=== PATIENT | male | born 1935 | race Caucasian/White ===

== ENCOUNTER 2018-07-06 05:15 | Emergency (ER) | payer OTHER ==
[~2018-07-06] VITALS: Ht 185.4 cm; Wt 108.9 kg
[~2018-07-06 05:15] MED LIST: HYDACE5325 PO; LEVSOD100 PO; NEBI5 PO; TAMS.4ER PO; WARF10 PO
[2018-07-06 05:41] LABS: BASOPHILS ABSOLUTE AUTO 0.04 K/mm3 (0.00-0.23); BASOPHILS PERCENT AUTO 1 % (0-2); EOSINOPHILS ABSOLUTE AUTO 0.16 K/mm3 (0.00-0.68); EOSINOPHILS PERCENT AUTO 2 % (0-6); Hematocrit 48.7 % (37.0-53.0); Hemoglobin 15.3 g/dL (13.5-17.5); IMMATURE GRAN ABSOLUTE AUTO 0.04 K/mm3 (0.00-0.10); IMMATURE GRAN PERCENT AUTO 1 % (0-1); LYMPHOCYTES ABSOLUTE AUTO 1.91 K/mm3 (0.84-5.20); LYMPHOCYTES PERCENT AUTO 25 % (21-46); MONOCYTES ABSOLUTE AUTO 0.85 K/mm3 (0.16-1.47); MONOCYTES PERCENT AUTO 11 % (4-13); Mean Corpuscular HGB 28.6 pg (26.0-34.0); Mean Corpuscular HGB Conc 31.4 g/dL (31.5-36.5); Mean Corpuscular Volume 91 fL (80-100); Mean Platelet Volume 9.6 fL (9.1-12.4); NEUTROPHILS ABSOLUTE AUTO 4.74 K/mm3 (1.96-9.15); NEUTROPHILS PERCENT AUTO 61 % (41-73); Platelet Count 173 K/mm3 (150-400); RDW Coefficient Variation 13.3 % (11.7-14.2); RDW Standard Deviation 45.2 fL (35.1-46.3); Red Blood Cell Count 5.35 M/mm3 (4.30-5.90); White Blood Cell Count 7.74 K/mm3 (4.00-11.30)
[2018-07-06 05:52] LABS: Alanine Aminotransfer (ALT/SGP 25 U/L (12-78); Albumin, Blood 3.4 g/dL (3.4-5.0); Albumin/Globulin Ratio 0.7 (0.8-1.8); Alk Phos 76 U/L (50-136); Anion Gap 5 mmol/L (6-16); Aspartate Aminotrans (AST/SGOT 19 U/L (12-37); Bilirubin, Total 0.4 mg/dL (0.1-1.0); Blood Urea Nitrogen 19 mg/dL (8-24); Bun/Creatinine Ratio 17.3 (12.0-20.0); CO2, Blood 28 mmol/L (21-32); Calcium, Blood 9.3 mg/dL (8.5-10.1); Chloride, Blood 110 mmol/L (98-108); Globulin, Blood 4.7 g/dL (2.2-4.0); Glomerular Filtration Rate >60 (60-); Glucose, Blood 95 mg/dL (70-99); Potassium, Blood 4.2 mmol/L (3.5-5.5); Sodium, Blood 143 mmol/L (136-145); Total Protein, Blood 8.1 g/dL (6.4-8.2); Troponin I <0.015 ng/mL (0.000-0.040)
[2018-07-06 06:54] LABS: International Normalized Ratio 2.85; Prothrombin Time Results 27.5 Sec (9.7-11.5)
[2018-07-06] MEDS ORDERED: Medi-Meclizine25 MG PO (09:50)
== END 2018-07-06 10:10 | disposition home or self-care (01) ==
LOC: ER 05:15
PROVIDERS: Emergency Medicine
DX: R42 Dizziness and giddiness (principal); I48.91 Unspecified atrial fibrillation; Z79.01 Long term (current) use of anticoagulants; Z79.899 Other long term (current) drug therapy
CPT/HCPCS: 70450; 80053; 84484; 85025; 85610; 93005; 93010; 99284-25

== ENCOUNTER → 2019-04-29 | Outpatient (CLI) | payer OTHER ==
[~2019-04-29] MED LIST changes: +Medi-Meclizine25 MG PO
== END | disposition home or self-care (01) ==
LOC: LAB 11:09 → LAB SHORT 11:09
DX: A49.9 Bacterial infection, unspecified (principal)
CPT/HCPCS: 87070; 87106; 87205

== ENCOUNTER 2023-04-07 17:47 | Inpatient (IN) | payer OTHER ==
[~2023-04-07] VITALS: Ht 185.4 cm; Wt 101.3 kg
[~2023-04-07 17:47] MED LIST changes: +Coumadin2 MG PO; +LEVOTHYROXINE200 MCG PO; -LEVSOD100 PO; +NEBI10 PO; -NEBI5 PO; -WARF10 PO
[2023-04-07] MEDS ORDERED: Carvedilol 3.125 MG Tab PO ONE (18:05)
[2023-04-07 18:27] LABS: BASOPHILS ABSOLUTE AUTO 0.03 K/mm3 (0.00-0.23); BASOPHILS PERCENT AUTO 0 % (0-2); EOSINOPHILS PERCENT AUTO 0 % (0-6); Hemoglobin 14.9 g/dL (13.5-17.5); IMMATURE GRAN ABSOLUTE AUTO 0.05 K/mm3 (0.00-0.10); IMMATURE GRAN PERCENT AUTO 1 % (0-1); LYMPHOCYTES ABSOLUTE AUTO 0.24 K/mm3 (0.84-5.20); LYMPHOCYTES PERCENT AUTO 2 % (21-46); MONOCYTES ABSOLUTE AUTO 0.75 K/mm3 (0.16-1.47); MONOCYTES PERCENT AUTO 7 % (4-13); Mean Corpuscular HGB 28.7 pg (26.0-34.0); Mean Corpuscular HGB Conc 32.4 g/dL (31.5-36.5); Mean Corpuscular Volume 89 fL (80-100); Mean Platelet Volume 10.2 fL (9.1-12.4); NEUTROPHILS ABSOLUTE AUTO 9.46 K/mm3 (1.96-9.15); NEUTROPHILS PERCENT AUTO 90 % (41-73); Platelet Count 187 K/mm3 (150-400); RDW Coefficient Variation 14.1 % (11.7-14.2); RDW Standard Deviation 45.4 fL (35.1-46.3); Red Blood Cell Count 5.19 M/mm3 (4.30-5.90); White Blood Cell Count 10.53 K/mm3 (4.00-11.30)
[2023-04-07 18:43] LABS: Source, Urine Clean Catch
[2023-04-07 18:45] LABS: International Normalized Ratio 1.41; Prothrombin Time Results 14.5 Sec (9.7-11.5)
[2023-04-07 18:48] LABS: Albumin, Blood 3.5 g/dL (3.4-5.0); Albumin/Globulin Ratio 0.7 (0.8-1.8); Bun/Creatinine Ratio 19.5 (12.0-20.0); Calcium, Blood 9.4 mg/dL (8.5-10.1); Creatinine, Blood 1.49 mg/dL (0.60-1.20); Globulin, Blood 4.7 g/dL (2.2-4.0); Potassium, Blood 4.5 mmol/L (3.5-5.5); Total Protein, Blood 8.2 g/dL (6.4-8.2)
[2023-04-07 18:59] LABS: Influenza A, PCR NEGATIVE (NEGATIVE); Influenza B, PCR NEGATIVE (NEGATIVE); Resp Syncytial Virus, PCR NEGATIVE (NEGATIVE)
[2023-04-07 19:10] LABS: SARS-Cov-2 (COVID-19) PCR, MMC POSITIVE (NEGATIVE)
[2023-04-07 19:27] LABS: Appearance, Urine Cloudy (Clear); Bilirubin, Urine Neg (Neg); Blood, Urine 5+ (Neg); Color, Urine Yellow (P-Yellow); Glucose Qualitative, Urine Neg (Neg); Ketones, Urine 2+ (Neg); Leukocyte Esterase, Urine 1+ (Neg); Nitrite, Urine Neg (Neg); Protein, Urine 3+ (Neg); Specific Gravity, Urine 1.015 (1.003-1.022); Urobilinogen, Urine NORM (Normal)
[2023-04-07 19:40] LABS: Bacteria Few /hpf; Hyaline Casts 0-2 /lpf (0-2); Mucus Mod (0-Heavy); Red Blood Cells, Urine 50-100 /hpf (0-2); Renal Epithelial Rare /hpf (0-Rare); Spermatozoa Few /hpf; Squamous Epithelial Cells Few /hpf (Few)
[2023-04-07 19:41] LABS: Granular Casts 0-2 /lpf (0)
[2023-04-07] MEDS ORDERED: NS 1,000 ML IV SCH (20:10)
[2023-04-07] MEDS ORDERED: Guaifenesin/Dextromethorphan Syrup 5 ML UDC PO PRN (22:20)
[2023-04-07] MEDS ORDERED: Acetaminophen 325 MG TABLET PO PRN ×2 (22:25)
[2023-04-07] MEDS ORDERED: FLU VACC QS2023-24(6MOS UP)/PF 60 MCG/0.5 ML SYRINGE IM ONE (22:25)
[2023-04-07] MEDS ORDERED: Melatonin 3 MG Tab PO PRN (22:25)
[2023-04-07] MEDS ORDERED: Albuterol HFA200 ACT/6.7 GM INH INH PRN (23:25)
[2023-04-07] MEDS ORDERED: Lactated Ringer's 1,000 ML IV SCH (23:30)
[2023-04-08] MEDS ORDERED: TAMSULOSIN HCL0.4 M1 PO (00:08)
[2023-04-08 00:14] VITALS: BP 155/90
[2023-04-08] MEDS ORDERED: Warfarin Sodium 5 MG Tab PO ONE (00:50)
[2023-04-08] MEDS ORDERED: Levothyroxine Sodium 0.025 MG Tab PO SCH (06:00)
[2023-04-08 06:16] LABS: BASOPHILS ABSOLUTE AUTO 0.01 K/mm3 (0.00-0.23); BASOPHILS PERCENT AUTO 0 % (0-2); EOSINOPHILS PERCENT AUTO 0 % (0-6); Hematocrit 41.3 % (37.0-53.0); Hemoglobin 13.4 g/dL (13.5-17.5); IMMATURE GRAN ABSOLUTE AUTO 0.05 K/mm3 (0.00-0.10); IMMATURE GRAN PERCENT AUTO 1 % (0-1); LYMPHOCYTES ABSOLUTE AUTO 1.09 K/mm3 (0.84-5.20); LYMPHOCYTES PERCENT AUTO 11 % (21-46); MONOCYTES ABSOLUTE AUTO 1.16 K/mm3 (0.16-1.47); MONOCYTES PERCENT AUTO 11 % (4-13); Mean Corpuscular HGB 28.8 pg (26.0-34.0); Mean Corpuscular HGB Conc 32.4 g/dL (31.5-36.5); Mean Corpuscular Volume 89 fL (80-100); NEUTROPHILS ABSOLUTE AUTO 8.05 K/mm3 (1.96-9.15); NEUTROPHILS PERCENT AUTO 78 % (41-73); Platelet Count 148 K/mm3 (150-400); RDW Coefficient Variation 14.5 % (11.7-14.2); RDW Standard Deviation 46.8 fL (35.1-46.3); Red Blood Cell Count 4.66 M/mm3 (4.30-5.90); White Blood Cell Count 10.36 K/mm3 (4.00-11.30)
[2023-04-08 06:25] VITALS: BP 137/98
--- NOTE | 2023-04-08 06:33 | NUR ---
PATIENT CAME IN SENIOR ACCOUNTANT CPA, TRANSFERRED TO BED COMFORTABLY. WITH PIV ON LEFT AC PATENT AND INTACT; HOOKED LR 1 L AT 125 ML/HR/ ON ROOM AIR. ON ISOLATION DUE TO COVID. WITH TELE ON AFIB 86. SKIN CHECK DONE. NEEDS ATTENDED. CALL LIGHT WITHIN PATIENT'S REACH. WILL CONTINUE TO MONITOR.
[2023-04-08 06:34] LABS: International Normalized Ratio 1.28; Prothrombin Time Results 13.3 Sec (9.7-11.5)
[2023-04-08] MEDS ORDERED: Carvedilol 6.25 MG Tab PO SCH (08:00)
[2023-04-08 08:20] LABS: Albumin/Globulin Ratio 0.7 (0.8-1.8); Bilirubin, Total 0.8 mg/dL (0.1-1.0); Bun/Creatinine Ratio 21.5 (12.0-20.0); Calcium, Blood 8.5 mg/dL (8.5-10.1); Creatinine, Blood 1.35 mg/dL (0.60-1.20); Globulin, Blood 4.1 g/dL (2.2-4.0); Potassium, Blood 3.9 mmol/L (3.5-5.5); Thyroid Stimulating Hormone 0.241 uIU/mL (0.360-4.800); Total Protein, Blood 7.1 g/dL (6.4-8.2)
[2023-04-08] MEDS ORDERED: Docusate Sodium 100 MG Cap PO SCH (09:00)
[2023-04-08] MEDS ORDERED: Heparin Sodium,Porcine 5,000 UNIT/0.5 ML SDV SC SCH (09:00)
[2023-04-08 15:46] VITALS: BP 121/74
[2023-04-08] MEDS ORDERED: Warfarin Sodium 7.5 MG Tab PO SCH (18:00)
--- NOTE | 2023-04-08 19:30 | NUR ---
SHIFT SUMMARY A&O X 4, CAN BE FORGETFUL. VSS. IS PLEASANT & COOPERATIVE WITH ALL CARE, IS [place] JOLLA. IS IN ISO FOR COVID. ON TELE, A. FIB HR 80'S. PARTICIPATED WITH PT TODAY, PT RECOMMENDED SNF. INC OF BOWEL & URINE. PT SAT UP IN FOR BFAST & LUNCH. APPETITE IS GOOD. SWALLOWS PILLS WHOLE WITH WATER. ON RA WITH SATS >95%. NO COUGH, NO SOB, NO CP. BED IN LOW POSITION, CALL LIGHT WITHIN REACH. IS ABLE TO MAKE NEEDS KNOWN. PLAN IS LIKELY SNF PLACEMENT UPON DC.
[2023-04-08 19:54] VITALS: BP 134/84
[2023-04-09 05:13] VITALS: BP 157/112
[2023-04-09 05:51] LABS: BASOPHILS ABSOLUTE AUTO 0.02 K/mm3 (0.00-0.23); BASOPHILS PERCENT AUTO 0 % (0-2); EOSINOPHILS ABSOLUTE AUTO 0.03 K/mm3 (0.00-0.68); EOSINOPHILS PERCENT AUTO 0 % (0-6); Hematocrit 41.6 % (37.0-53.0); Hemoglobin 13.3 g/dL (13.5-17.5); IMMATURE GRAN ABSOLUTE AUTO 0.02 K/mm3 (0.00-0.10); IMMATURE GRAN PERCENT AUTO 0 % (0-1); LYMPHOCYTES ABSOLUTE AUTO 1.21 K/mm3 (0.84-5.20); LYMPHOCYTES PERCENT AUTO 16 % (21-46); MONOCYTES ABSOLUTE AUTO 0.93 K/mm3 (0.16-1.47); MONOCYTES PERCENT AUTO 12 % (4-13); Mean Corpuscular HGB 28.4 pg (26.0-34.0); Mean Corpuscular Volume 89 fL (80-100); Mean Platelet Volume 9.9 fL (9.1-12.4); NEUTROPHILS ABSOLUTE AUTO 5.54 K/mm3 (1.96-9.15); NEUTROPHILS PERCENT AUTO 71 % (41-73); Platelet Count 138 K/mm3 (150-400); RDW Coefficient Variation 14.5 % (11.7-14.2); RDW Standard Deviation 46.6 fL (35.1-46.3); Red Blood Cell Count 4.69 M/mm3 (4.30-5.90); White Blood Cell Count 7.75 K/mm3 (4.00-11.30)
[2023-04-09] MEDS ORDERED: Levothyroxine Sodium 0.175 MG TAB PO SCH (06:00)
[2023-04-09 06:03] LABS: International Normalized Ratio 1.33; Prothrombin Time Results 13.7 Sec (9.7-11.5)
--- NOTE | 2023-04-09 06:07 | NUR ---
PATIENT IS ALERT AND ORIENTED, ON ROOM AIR AND TELE. WITH PIV LINE ON RIGHT ARM PATENT AND INTACT. VITAL SIGNS TAKEN AND RECORDED. NO COMPLAINTS MADE. ON ISO D/T COVID. NEEDS ATTENDED. BP TAKEN THIS MORNING IS HIGH, DUE COREG GIVEN AHEAD OF TIME. CALL LIGHT WITHIN PATIENT'S REACH. WILL CONTINUE TO MONITOR.
[2023-04-09 06:48] LABS: Albumin/Globulin Ratio 0.8 (0.8-1.8); Bilirubin, Total 0.7 mg/dL (0.1-1.0); Bun/Creatinine Ratio 25.8 (12.0-20.0); Calcium, Blood 8.9 mg/dL (8.5-10.1); Creatinine, Blood 1.24 mg/dL (0.60-1.20); Phosphorus, Blood 2.4 mg/dL (2.5-4.9); Potassium, Blood 3.8 mmol/L (3.5-5.5)
[2023-04-09 07:57] VITALS: BP 154/116
[2023-04-09] MEDS ORDERED: AmLODIPine Besylate 5 MG Tab PO SCH (09:00)
[2023-04-09 15:51] VITALS: BP 145/92
--- NOTE | 2023-04-09 17:01 | NUR ---
SHIFT SUMMARY A&O X 4. BP HIGH, 154/116, MD AWARE, ORDERS RECEIVED TO START NORVASC. NORVASC GIVEN ORDERED, AFTERNOON BP SHOWING IMPROVEMENT, 145/92. IS PLEASANT & COOPERATIVE WITH ALL CARE. IS 2 PERSON MOD/MAX ASSIST WITH FWW & GB FOR TRANSFER TO BSC/CH/BACK TO BED. USES URINAL INDEPENDENTLY AND HAD HARD MED SIZED BM ON BSC. PT IS WEAK AND STIFF. TELE SHOWS A.FIB W/BBB. ON RA WITH SATS RANGING 90-97%. NO COUGH NOTED. APPETITE GOOD. IS IN GOOD SPIRITS. PLAN FOR DC IS LIKELY SNF WHEN CLINICALLY STABLE.
[2023-04-09] MEDS ORDERED: Lactated Ringer's 1,000 ML IV SCH (17:05)
[2023-04-09] MEDS ORDERED: Warfarin Sodium 7.5 MG Tab PO SCH (18:00)
[2023-04-09 20:43] VITALS: BP 146/99
[2023-04-10] VITALS (7 sets, daily range): BP systolic 138–171; BP diastolic 87–116
[2023-04-10] MEDS ORDERED: HydrALAZINE HCl 20 MG / ML 1ML Vial IV PRN (04:24)
--- NOTE | 2023-04-10 05:15 | NUR ---
SHIFT SUMMARY: NIRAV IS A&OX4. VS WITH BP INCREASED THIS AM, ON-CALL HOSPITALIST CONTACTED AND MEDICATED PER APR WITH IMPROVEMENT UPON RECHECK. PT IS TOLERATING PO INTAKE WELL, IV TO R FOREARM PATENT, FLUIDS INFUSING. PT DEVELOPED SOME EXPIRATORY WHEEZE COUPLED WITH SOB FOR WHICH RT TREATED PT WITH REPORTED IMPROVEMENT IN SYMPTOMS, MAINTAINING SATS ORA. PT IS ABLE TO TURN AND REPOSITION HIMSELF IN BED. EDUCATED PT ON PRESSURE ULCER PREVENTION, PT VERBALIZED UNDERSTANDING. HE IS A TWO-PERSON ASSIST WITH THE FWW AND GAIT BELT TO THE BEDSIDE COMMODE. HE USES THE URINAL WITHOUT DIFFICULTY, URINATING BETWEEN 100 AND 200 ML PER VOID THIS SHIFT. HE IS LYING IN BED WITH THE CALL LIGHT IN REACH. WILL GIVE REPORT TO ONCOMING SHIFT.
[2023-04-10 05:51] LABS: BASOPHILS ABSOLUTE AUTO 0.02 K/mm3 (0.00-0.23); BASOPHILS PERCENT AUTO 0 % (0-2); EOSINOPHILS ABSOLUTE AUTO 0.04 K/mm3 (0.00-0.68); EOSINOPHILS PERCENT AUTO 1 % (0-6); Hematocrit 43.6 % (37.0-53.0); Hemoglobin 13.7 g/dL (13.5-17.5); IMMATURE GRAN ABSOLUTE AUTO 0.03 K/mm3 (0.00-0.10); IMMATURE GRAN PERCENT AUTO 1 % (0-1); LYMPHOCYTES ABSOLUTE AUTO 0.82 K/mm3 (0.84-5.20); LYMPHOCYTES PERCENT AUTO 15 % (21-46); MONOCYTES ABSOLUTE AUTO 0.74 K/mm3 (0.16-1.47); MONOCYTES PERCENT AUTO 13 % (4-13); Mean Corpuscular HGB Conc 31.4 g/dL (31.5-36.5); Mean Corpuscular Volume 89 fL (80-100); Mean Platelet Volume 10.2 fL (9.1-12.4); NEUTROPHILS ABSOLUTE AUTO 3.89 K/mm3 (1.96-9.15); NEUTROPHILS PERCENT AUTO 70 % (41-73); Platelet Count 139 K/mm3 (150-400); RDW Coefficient Variation 14.2 % (11.7-14.2); RDW Standard Deviation 46.6 fL (35.1-46.3); Red Blood Cell Count 4.89 M/mm3 (4.30-5.90); White Blood Cell Count 5.54 K/mm3 (4.00-11.30)
[2023-04-10 06:00] LABS: International Normalized Ratio 1.35; Prothrombin Time Results 13.9 Sec (9.7-11.5)
[2023-04-10 06:55] LABS: Bun/Creatinine Ratio 23.5 (12.0-20.0); Calcium, Blood 8.7 mg/dL (8.5-10.1); Creatinine, Blood 1.15 mg/dL (0.60-1.20); Potassium, Blood 3.7 mmol/L (3.5-5.5)
[2023-04-10] MEDS ORDERED: Carvedilol 6.25 MG Tab PO SCH (08:00)
--- NOTE | 2023-04-10 16:56 | NUR ---
SHIFT SUMMARY A&OX4, COOPERATIVE WITH CARE, [facility]. DENIED CP/PRESSURE, HEADACHE, DIZZINESS, OR SOB. ROOM AIR. 2P HEAVY ASSIST TO BEDSIDE COMMODE. PATIENT VERBALIZED HIS ANXIETY OF STANDING AND WALKING BECAUSE HE FEELS LIKE HE WILL FALL. DIFFICULTY MOVING LEGS WITH AMBULATION, ESPECIALLY THE RIGHT LEG. NO ACUTE CHANGES THIS SHIFT. CURRENTLY WATCHING TV IN BED. BED IN THE LOWEST POSITION. CALL LIGHT WITHIN REACH.
[2023-04-10] MEDS ORDERED: Warfarin Sodium 5 MG Tab PO SCH (18:00)
[2023-04-11] VITALS (7 sets, daily range): BP systolic 101–161; BP diastolic 7–101
[2023-04-11 06:17] LABS: BASOPHILS ABSOLUTE AUTO 0.02 K/mm3 (0.00-0.23); BASOPHILS PERCENT AUTO 0 % (0-2); EOSINOPHILS PERCENT AUTO 2 % (0-6); Hematocrit 41.8 % (37.0-53.0); Hemoglobin 13.8 g/dL (13.5-17.5); IMMATURE GRAN ABSOLUTE AUTO 0.02 K/mm3 (0.00-0.10); IMMATURE GRAN PERCENT AUTO 0 % (0-1); LYMPHOCYTES ABSOLUTE AUTO 1.28 K/mm3 (0.84-5.20); LYMPHOCYTES PERCENT AUTO 23 % (21-46); MONOCYTES ABSOLUTE AUTO 0.81 K/mm3 (0.16-1.47); MONOCYTES PERCENT AUTO 15 % (4-13); Mean Corpuscular HGB 28.6 pg (26.0-34.0); Mean Corpuscular Volume 87 fL (80-100); Mean Platelet Volume 10.2 fL (9.1-12.4); NEUTROPHILS ABSOLUTE AUTO 3.37 K/mm3 (1.96-9.15); NEUTROPHILS PERCENT AUTO 60 % (41-73); Platelet Count 142 K/mm3 (150-400); RDW Coefficient Variation 14.1 % (11.7-14.2); RDW Standard Deviation 45.3 fL (35.1-46.3); Red Blood Cell Count 4.82 M/mm3 (4.30-5.90)
[2023-04-11 06:31] LABS: International Normalized Ratio 1.58; Prothrombin Time Results 16.2 Sec (9.7-11.5)
[2023-04-11 06:42] LABS: Bun/Creatinine Ratio 23.9 (12.0-20.0); Calcium, Blood 8.5 mg/dL (8.5-10.1); Creatinine, Blood 1.13 mg/dL (0.60-1.20); Potassium, Blood 3.6 mmol/L (3.5-5.5)
--- NOTE | 2023-04-11 07:11 | NUR ---
Shift Summary Pt AOx4, requested not to be bothered t/o the night so that he could sleep. He slept well t/o the night. Hypertensive the AM with systolic of 161, gave PRN Hyralazine. During shift change pt stated he was having trouble breathing, O2 saturation is good but he is feeling short of breath. Called RT and requested a treatment.
--- NOTE | 2023-04-11 07:45 | NUR ---
TELE EVENT HR JUMPED INTO THE 150'S AND LASTED FOR ABOUT A MINUTE. PATIENT WAS TRANSFERRING FROM BED TO BSC WITH IRRIGATION EQUIPMENT REMOVER'S. BP IS ALSO ELEVATED AT 149/101. WILL ADMINISTER AM MEDS AND CONTINUE TO MONITOR.
[2023-04-11] MEDS ORDERED: AmLODIPine Besylate 5 MG Tab PO SCH (09:00)
[2023-04-11] MEDS ORDERED: Tamsulosin HCl 0.4 MG Cap PO SCH (09:00)
[2023-04-11] MEDS ORDERED: Lactated Ringer's 500 ML IV ONE (10:05)
[2023-04-11 10:23] LABS: PO2 Arterial 72.5 mmHg (80-100); pH Blood Arterial 7.46 (7.35-7.45)
--- NOTE | 2023-04-11 10:30 | NUR ---
PATIENT APPEARED "NOT HIMSELF" DURING DR'S ROUNDS. CT WAS ORDERED. PATIENT THEN WAS HYPOTENSIVE AND NOT RESPONDING TO VERBAL CUES. POWER SYSTEM ELECTRICAL ENGINEER WAS TRYING TO TRANSFER PT BACK TO BED WITH A SIT TO STAND AND STATED THAT THE PATIENT WAS " WEIGHT." DR SHAH ARRIVED, PUT PATIENT IN TRENDELENBERG AND ORDERED A 500 BOLUS OF LR STAT AND AN ABG. PATIENT'S BP IS SLOWLY INCREASING. HE IS RECEIVING THE BOLUS AND LAYING FLAT AT THIS TIME. WILL RECHECK BP WHEN BOLUS IS FINISHED. REPORTED TO CHARGED NURSE.
[2023-04-11] MEDS ORDERED: Enoxaparin 100 MG/ML 1ML SYR SC SCH (11:34)
[2023-04-11] MEDS ORDERED: Warfarin Sodium 5 MG Tab PO ONE (18:00)
[2023-04-12] VITALS (9 sets, daily range): BP systolic 105–177; BP diastolic 84–133
[2023-04-12 05:39] LABS: Hematocrit 41.3 % (37.0-53.0); Hemoglobin 13.7 g/dL (13.5-17.5); Mean Corpuscular HGB 28.4 pg (26.0-34.0); Mean Corpuscular HGB Conc 33.2 g/dL (31.5-36.5); Mean Corpuscular Volume 86 fL (80-100); Mean Platelet Volume 9.7 fL (9.1-12.4); Platelet Count 142 K/mm3 (150-400); RDW Coefficient Variation 14.1 % (11.7-14.2); RDW Standard Deviation 44.3 fL (35.1-46.3); Red Blood Cell Count 4.82 M/mm3 (4.30-5.90); White Blood Cell Count 5.54 K/mm3 (4.00-11.30)
[2023-04-12 05:54] LABS: International Normalized Ratio 2.14; Prothrombin Time Results 21.5 Sec (9.7-11.5)
[2023-04-12 06:02] LABS: Bun/Creatinine Ratio 24.8 (12.0-20.0); Calcium, Blood 8.9 mg/dL (8.5-10.1); Creatinine, Blood 1.17 mg/dL (0.60-1.20); Potassium, Blood 3.6 mmol/L (3.5-5.5)
--- NOTE | 2023-04-12 06:51 | NUR ---
Shift Summary Pt AOx4, no hypotensive or unresponsive events. He is on tele running afib 78-100, he did have a 15 beat run of [employer], asymptomatic. His BP was elevated this AM above with systolic above 160, I did not give his PRN Hydralazine because the last two mornings his BP crashed and he became lethargic shortly after recieving that medication. He slept well t/o the night, no acute events.
[2023-04-12] MEDS ORDERED: HydrALAZINE HCl 20 MG / ML 1ML Vial IV PRN (09:50)
[2023-04-12] MEDS ORDERED: Warfarin Sodium 5 MG Tab PO SCH (18:00)
--- NOTE | 2023-04-12 19:46 | NUR ---
SHIFT SUMMARY: PATIENT REPORTED SOME MINIMAL ACHES AND PAINS TODAY THAT PATIENT REPORTS IS BASELINE FOR HIM. PATIENT UP TO THE CHAIR MULTIPLE TIMES. PATIENT SHOWED SOME SHORTNESS OF BREATH WITH ACTIVITY. PATIENT RECOVERS AT REST. PATIENT DENIED CHEST PAIN OR DISCOMFORT. NOTED DECREASE IN BLOOD PRESSURE AFTER THE PATIENT HAD BEEN IN THE CHAIR FOR AN EXTENDED PERIOD OF TIME. PATIENT ABLE TO TRANSFER WITH 1 ASSIST, FWW, AND GAIT BELT. PATIENT HAS SHORT SHUFFLING STEPS, BUT IS STEADY ON HIS FEET WITH THE WALKER. PATIENT CONTINUES TO ATTEMPT TO HAVE A BOWEL MOVEMENT. PATIENT DID NOT REQUIRE ANY PRN HYDRALAZINE TODAY. PATIENT HAS AN ADEQUATE APPETITE. PATIENT VISITED BY HIS SISTER AND BROTHER IN LAW TODAY. PATIENT IS CALM AND COOPERATIVE AND ABLE TO MAKE HIS NEEDS KNOWN. PATIENT CALLS APPROPRIATELY. PATIENT REPORTS SOME NUMBNESS/TINGLING IN LLE AT BASELINE.
[2023-04-13 05:59] LABS: International Normalized Ratio 2.42; Prothrombin Time Results 24.2 Sec (9.7-11.5)
[2023-04-13 07:37] VITALS: BP 148/83
[2023-04-13] MEDS ORDERED: AmLODIPine Besylate 5 MG Tab PO SCH (09:00)
[2023-04-13 13:17] LABS: Influenza A, PCR NEGATIVE (NEGATIVE); Influenza B, PCR NEGATIVE (NEGATIVE); Resp Syncytial Virus, PCR NEGATIVE (NEGATIVE)
[2023-04-13 14:32] LABS: SARS-Cov-2 (COVID-19) PCR, MMC POSITIVE (NEGATIVE)
[2023-04-13 15:03] VITALS: BP 124/73
--- NOTE | 2023-04-13 16:59 | NUR ---
PT IS ALERT AND ORIENTED X3-4, FORGETFUL. 1 PERSON ASSIST WITH FWW AND GAIT BELT TO BEDSIDE COMMODE. ABLE TO WALK ONLY A FEW STEPS. VERY WEAK AND DECONDITIONED. INCONT/CONT. DOES KNOW WHEN HE NEEDS TO URINATE AND HAVE BM. UNABLE TO HOLD BOWEL AT TIMES. EXTRA LARGE LOOSE BM. PLS HOLD BOWEL CARE FOR NOW. PLAN IS FOR SNF WHEN READY FOR DISCHARGE.
[2023-04-13] MEDS ORDERED: Warfarin Sodium 5 MG Tab PO SCH (18:00)
[2023-04-13 19:54] VITALS: BP 142/93
[2023-04-14 02:59] VITALS: BP 139/78
[2023-04-14 05:13] LABS: International Normalized Ratio 2.63; Prothrombin Time Results 26.1 Sec (9.7-11.5)
[2023-04-14 08:37] VITALS: BP 127/86
[2023-04-14 16:16] VITALS: BP 114/88
--- NOTE | 2023-04-14 16:30 | NUR ---
NO ACUTE CHANGES THIS SHIFT. ALERT AND ORIENTED X4, INTERMITTENT CONFUSION. PT CALLED 911 BECAUSE HE WAS UNABLE TO FIND HIS PHONE. HE IS EASILY REDIRECTIBLE. UP IN THE CHAIR FOR MEALS. MEDICALLY STABLE FOR DISCHARGE, AWAITING NEGATIVE COVID TESTS REQUIRED FOR DISCHARGE DISPOSITION. 1 PERSON ASSIST TO BEDSIDE COMMODE WITH FWW AND GAITBELT. INDEPENDENTLY USING URINAL WHILE IN BED AND CHAIR. BLOOD PRESSURES THIS SHIFT HAVE BEEN WNL. BED IS IN THE LOWEST POSITION WITH CALL LIGHT IN REACH.
[2023-04-14] MEDS ORDERED: Warfarin Sodium 5 MG Tab PO ONE (18:00)
[2023-04-14 20:32] VITALS: BP 102/63
[2023-04-15 04:18] VITALS: BP 132/92
[2023-04-15 05:04] LABS: International Normalized Ratio 2.5; Prothrombin Time Results 24.9 Sec (9.7-11.5)
--- NOTE | 2023-04-15 06:28 | NUR ---
SHIFT SUMMARY: PT IS ADMITTED FOR RHABDOMYOLYSIS AND IS A FULL CODE. IS ALERT AND ABLE TO MAKE NEEDS KNOWN. HAS HAD PERIODS OF CONFUSION. ADLs THIS SHIFT HAVE BEEN 1P BUT HAS STAYED IN BED. DENIES PAIN OR DISCOMFORT WHEN ASKED. MARU REPORTS AFIB AT 77. IS ON ISO FOR COVID.
[2023-04-15 08:44] VITALS: BP 135/103
[2023-04-15 17:13] VITALS: BP 129/97
[2023-04-15] MEDS ORDERED: Warfarin Sodium 5 MG Tab PO ONE (18:00)
[2023-04-15 18:12] LABS: SARS-Cov-2 (COVID-19) PCR, MMC POSITIVE (NEGATIVE)
--- NOTE | 2023-04-15 18:21 | NUR ---
SHIFT SUMMARY USING URINAL THIS SHIFT, UP TO CHAIR FOR MEALS. HARD OF HEARING. COVID + AGAIN THIS SHIFT, WAITING FOR NEGATIVE RESULT TO SEND TO [facility] FOR REHAB. CALL LIGHT IN REACH, BED IN LOW POSITION. CARES ONGOING.
[2023-04-15 20:41] VITALS: BP 129/89
[2023-04-16 03:48] VITALS: BP 132/90
--- NOTE | 2023-04-16 04:48 | NUR ---
COMPOUND FILLER SUMMARY PT A&O X 4, PLEASANT. PT SLEPT THROUGH THE NIGHT. PT USING BEDSIDE URINALAND IS ABLETO ADJUST HIMSELF IN BED. NO ACUTE CHANGES THIS SHIFT. 04/16/23 GAURAV RIOS RN
[2023-04-16 05:22] LABS: International Normalized Ratio 2.4
[2023-04-16 07:25] VITALS: BP 137/84
[2023-04-16 16:04] VITALS: BP 122/80
[2023-04-16] MEDS ORDERED: Warfarin Sodium 7.5 MG Tab PO ONE (18:00)
--- NOTE | 2023-04-16 18:29 | NUR ---
REPORT RECEIVED AND VERIFIED, PT A/O UP IN CHAIR AND CAHUILLA. PT ANTIOUS TO GO TO SNF TO GO HOME. PT IS 10 DAYS AFTER COVID SO WILL BE ABLE TO BE TRANSFER IN THE AM. FAMILY AT THE BEDSIDE DOING WELL. HAS BEEN ASSISTED IN AND OUT OF BED TO CHAIR, PT NEEDS PHYSICAL T AND REHAD IF WANTING TO GO BACK HOME. NO CHANGE IN CON, WILL CONT MONITORING. PT CALLS APPROPRIATLY AND LETS NEEDS KNOWN
[2023-04-16 20:03] VITALS: BP 115/84
[2023-04-17 04:59] LABS: International Normalized Ratio 2.2; Prothrombin Time Results 22.1 Sec (9.7-11.5)
[2023-04-17 05:21] VITALS: BP 116/85
--- NOTE | 2023-04-17 05:53 | NUR ---
SHIFT SUMMARY PATIENT IS ALERT AND ORIENTED X3. PATIENT HAS HAD NO ACUTE EVENTS THIS SHIFT. VITAL SIGNS REVIEWED. PATIENT HAS BEEN RESTING MOST OF SHIFT. PATIENT HAS NO COMPLAINTS OF SOB, NAUSEA, VOMITTING OR PAIN THIS SHIFT. MAINTAINED ISOLATION FOR COVID ALL SHIFT. BED IN LOCKED AND LOWEST POSITION. CALL LIGHT IN PLACE. WILL MONITOR UNTIL SHIFT CHANGE.
[2023-04-17 08:12] VITALS: BP 125/87
[2023-04-17 16:14] VITALS: BP 120/79
[2023-04-17] MEDS ORDERED: Warfarin Sodium 7.5 MG Tab PO SCH (18:00)
[2023-04-17 20:11] VITALS: BP 104/70
[2023-04-18 05:07] LABS: International Normalized Ratio 2.35; Prothrombin Time Results 23.5 Sec (9.7-11.5)
[2023-04-18 05:09] VITALS: BP 117/69
--- NOTE | 2023-04-18 05:33 | NUR ---
SHIFT SUMMARY PATIENT IS ALERT AND ORIENTED. PATIENT HAS HAD NO ACUTE EVENTS THIS SHIFT. VITAL SIGNS REVIEWED. PATIENT HAS NO COMPLAINTS OF SOB, NAUSEA, VOMITTING OR PAIN THIS SHIFT. PATIENT HAS REMAINED IN COVID ISOLATION ALL SHIFT. PATIENT HAS BEEN SLEEPING MOST OF SHIFT. BED IN LOCKED AND LOWEST POSITION. CALL LIGHT IN PLACE.
[2023-04-18 08:15] VITALS: BP 109/94
[2023-04-18] MEDS ORDERED: AMLO5 PO (12:12)
--- NOTE | 2023-04-18 16:39 | NUR ---
REPORT CALLED TO RN AT [facility]
--- NOTE | 2023-04-18 17:51 | NUR ---
PT DISCHARGED PT TRANSFERED TO [facility] VIA WHEELCHAIR TRANSPORT. DINNER AND HIS BELONGINGS WERE SENT WITH THE PT. REPORT WAS GIVEN TO THE RN AT [facility].
[2023-04-18] MEDS ORDERED: Warfarin Sodium 5 MG Tab PO ONE (18:00)
== END 2023-04-18 17:39 | DRG 557 ==
LOC: ER 17:47 → MEDS 17:48 → ENPENDDIS 04-18 12:46 → MEDS 04-18 17:39
PROVIDERS: Emergency Medicine; Family Medicine; Family Medicine Adult Medicine; Internal Medicine; Student in an Organized Health Care Education/Training Program; ADMIT Student in an Organized Health Care Education/Training Program
DX: M62.82 Rhabdomyolysis (principal); U07.1 COVID-19; I48.20 Chronic atrial fibrillation, unspecified; I12.9 Hypertensive chronic kidney disease with stage 1 through stage 4 chronic kidney disease, or unspecified chronic kidney disease; N18.30 Chronic kidney disease, stage 3 unspecified; E03.9 Hypothyroidism, unspecified; N40.0 Benign prostatic hyperplasia without lower urinary tract symptoms; R41.0 Disorientation, unspecified; W18.30XA Fall on same level, unspecified, initial encounter; Z51.81 Encounter for therapeutic drug level monitoring; Z79.01 Long term (current) use of anticoagulants; Z87.891 Personal history of nicotine dependence
CPT/HCPCS: 0241U; 36415; 36600; 70450; 80048; 80053; 81001; 82550; 82803; 83735; 84100; 84443; 85025; 85027; 85610; 87086; 87426; 87811; 93005; 93010; 93925; 94640; 94664; 94760; 97110; 97110-CQ; 97116; 97161; 97165; 97530; 97535; 99285-25; A9270; G0378; J0360; J1650; J7030; J7120; U0002

== ENCOUNTER 2023-06-20 10:36 | Emergency (ER) | payer OTHER ==
[~2023-06-20] VITALS: Ht 188 cm; Wt 107.0 kg
[~2023-06-20 10:36] MED LIST changes: +AMLO5 PO; +TAMSULOSIN HCL0.4 M1 PO
[2023-06-20 10:55] LABS: BASOPHILS ABSOLUTE AUTO 0.03 K/mm3 (0.00-0.23); BASOPHILS PERCENT AUTO 0 % (0-2); EOSINOPHILS ABSOLUTE AUTO 0.09 K/mm3 (0.00-0.68); EOSINOPHILS PERCENT AUTO 1 % (0-6); Hematocrit 41.6 % (37.0-53.0); Hemoglobin 13.3 g/dL (13.5-17.5); IMMATURE GRAN ABSOLUTE AUTO 0.04 K/mm3 (0.00-0.10); IMMATURE GRAN PERCENT AUTO 1 % (0-1); LYMPHOCYTES ABSOLUTE AUTO 1.04 K/mm3 (0.84-5.20); LYMPHOCYTES PERCENT AUTO 14 % (21-46); MONOCYTES ABSOLUTE AUTO 0.61 K/mm3 (0.16-1.47); MONOCYTES PERCENT AUTO 8 % (4-13); Mean Corpuscular HGB 28.7 pg (26.0-34.0); Mean Corpuscular Volume 90 fL (80-100); Mean Platelet Volume 9.8 fL (9.1-12.4); NEUTROPHILS ABSOLUTE AUTO 5.82 K/mm3 (1.96-9.15); NEUTROPHILS PERCENT AUTO 76 % (41-73); Platelet Count 196 K/mm3 (150-400); RDW Coefficient Variation 13.9 % (11.7-14.2); Red Blood Cell Count 4.63 M/mm3 (4.30-5.90); White Blood Cell Count 7.63 K/mm3 (4.00-11.30)
[2023-06-20 11:22] LABS: Albumin, Blood 3.7 g/dL (3.4-5.0); Albumin/Globulin Ratio 0.9 (0.8-1.8); Bilirubin, Total 0.4 mg/dL (0.1-1.0); Bun/Creatinine Ratio 21.3 (12.0-20.0); Creatinine, Blood 1.27 mg/dL (0.60-1.20); Potassium, Blood 4.5 mmol/L (3.5-5.5); Total Protein, Blood 7.7 g/dL (6.4-8.2)
[2023-06-20 12:00] VITALS: BP 159/114
[2023-06-21] MEDS ORDERED: MECL25 PO (09:17)
[2023-06-21] MEDS ORDERED: ONDA4 PO (09:17)
[2023-06-22] MEDS ORDERED: JANTOVEN3 M2 PO (10:12)
== END 2023-06-20 12:55 | disposition home or self-care (01) ==
LOC: ER 10:36
PROVIDERS: Emergency Medicine
DX: R42 Dizziness and giddiness (principal); I10 Essential (primary) hypertension; I48.91 Unspecified atrial fibrillation; Z79.01 Long term (current) use of anticoagulants; Z79.890 Hormone replacement therapy; Z79.899 Other long term (current) drug therapy
CPT/HCPCS: 80053; 84484; 85025; 93005; 93010; 99284-25

== ENCOUNTER 2025-01-08 14:21 | Inpatient (IN) | payer OTHER ==
[~2025-01-08] VITALS: Ht 185.4 cm; Wt 108.9 kg
[~2025-01-08 14:21] MED LIST changes: +JANTOVEN3 M2 PO; +MECL25 PO; +ONDA4 PO; +XARELTO20 M1 PO
[2025-01-08 16:25] LABS: BASOPHILS ABSOLUTE AUTO 0.03 K/mm3 (0.00-0.23); BASOPHILS PERCENT AUTO 0 % (0-2); EOSINOPHILS ABSOLUTE AUTO 0.03 K/mm3 (0.00-0.68); EOSINOPHILS PERCENT AUTO 0 % (0-6); Hematocrit 30.0 % (37.0-53.0); Hemoglobin 9.2 g/dL (13.5-17.5); IMMATURE GRAN ABSOLUTE AUTO 0.09 K/mm3 (0.00-0.10); IMMATURE GRAN PERCENT AUTO 1 % (0-1); LYMPHOCYTES ABSOLUTE AUTO 1.10 K/mm3 (0.84-5.20); LYMPHOCYTES PERCENT AUTO 12 % (21-46); MONOCYTES ABSOLUTE AUTO 0.68 K/mm3 (0.16-1.47); MONOCYTES PERCENT AUTO 7 % (4-13); Mean Corpuscular HGB Conc 30.7 g/dL (31.5-36.5); Mean Corpuscular Volume 94 fL (80-100); NEUTROPHILS ABSOLUTE AUTO 7.53 K/mm3 (1.96-9.15); NEUTROPHILS PERCENT AUTO 80 % (41-73); NRBC ABSOLUTE 0.00 K/mm3 (0.00-0.02); NRBC Auto 0.0 /100 WBC (0.0-0.2); Platelet Count 196 K/mm3 (150-400); RDW Coefficient Variation 14.9 % (11.7-14.2); RDW Standard Deviation 50.7 fL (35.1-46.3)
[2025-01-08 16:50] LABS: Alanine Aminotransfer (ALT/SGP 25.0 U/L (12-78); Albumin, Blood 3.2 g/dL (3.4-5.0); Albumin/Globulin Ratio 0.7 (0.8-1.8); Anion Gap 6.0 mmol/L (3-11); Aspartate Aminotrans (AST/SGOT 20.0 U/L (12-37); Bilirubin, Total 0.5 mg/dL (0.1-1.0); Blood Urea Nitrogen 35.0 mg/dL (8-24); CO2, Blood 28.0 mmol/L (21-32); Calcium, Blood 9.1 mg/dL (8.5-10.1); Chloride, Blood 109.0 mmol/L (98-108); Creatinine, Blood 1.35 mg/dL (0.60-1.20); Globulin, Blood 4.3 g/dL (2.2-4.0); Glucose, Blood 100.0 mg/dL (70-99); Magnesium, Blood 2.4 mg/dL (1.6-2.4); Potassium, Blood 4.4 mmol/L (3.5-5.5); Sodium, Blood 139.0 mmol/L (136-145); Total Protein, Blood 7.5 g/dL (6.4-8.2)
[2025-01-08] MEDS ORDERED: DONE5 PO (19:19)
[2025-01-08] MEDS ORDERED: ASPI81CH PO (19:19)
[2025-01-08] MEDS ORDERED: EUTHYROX175 MC1 PO (19:20)
[2025-01-08] MEDS ORDERED: AMOX-CLAV 875-1 EAC5 PO (19:21)
[2025-01-08] MEDS ORDERED: FLU VACC TS2025(65UP)/MF59C/PF 45 MCG/0.5 ML SYRINGE IM SCH (20:35)
[2025-01-08] MEDS ORDERED: Ondansetron HCl 2 MG / ML 2ML Vial IV PRN (20:35)
[2025-01-08 21:19] VITALS: BP 134/99
[2025-01-08] MEDS ORDERED: CefTRIAXone Sodium 1,000 MG in NS 100 ML IV SCH (22:00)
[2025-01-08] MEDS ORDERED: NS 250 ML IV PRN (22:45)
[2025-01-08 23:15] VITALS: BP 109/78
--- NOTE | 2025-01-09 03:22 | NUR ---
SHIFT SUMMARY: PT ARRIVED TO UNIT AT AROUND 2106, AFTER ASSUMING CARE. RECIEVED REPORT FROM EVERARDO NICOLE. PT IS AOX4. UNSTEADY ON FEET, NEEDS 1-2PA WITH FWW. VSS, CARDIAC TELEMETRY SHOWS AFIB 90s. 3+ SWELLING NOTED TO BLE. LUNG SOUNDS HAD WHEEZING TO BASES. DENIES PAIN. RECIEVING IV ABX AND DIURETICS PER eMAR. CALL LIGHT IS WITHIN REACH. BED ALARM IS ON. BED IS LOW AND LOCKED.
[2025-01-09 03:34] VITALS: BP 122/81
[2025-01-09 03:35] VITALS: BP 122/81
[2025-01-09 06:11] LABS: Alanine Aminotransfer (ALT/SGP 23.0 U/L (12-78); Albumin, Blood 3.0 g/dL (3.4-5.0); Albumin/Globulin Ratio 0.8 (0.8-1.8); Anion Gap 6.0 mmol/L (3-11); Aspartate Aminotrans (AST/SGOT 19.0 U/L (12-37); Bilirubin, Total 0.3 mg/dL (0.1-1.0); Blood Urea Nitrogen 35.0 mg/dL (8-24); CO2, Blood 29.0 mmol/L (21-32); Calcium, Blood 8.6 mg/dL (8.5-10.1); Chloride, Blood 109.0 mmol/L (98-108); Creatinine, Blood 1.32 mg/dL (0.60-1.20); Globulin, Blood 3.7 g/dL (2.2-4.0); Glucose, Blood 93.0 mg/dL (70-99); Magnesium, Blood 2.4 mg/dL (1.6-2.4); Potassium, Blood 4.1 mmol/L (3.5-5.5); Sodium, Blood 140.0 mmol/L (136-145); Total Protein, Blood 6.7 g/dL (6.4-8.2)
[2025-01-09 07:40] VITALS: BP 132/88
--- NOTE | 2025-01-09 14:24 | NUR ---
ASSUMED CARE OF PT. PT IS A/O X 4 VERY PLEASENT AND COOPERATIVE WITH CARE. PT ABLE TO MAKE NEEDS KNOWN CALL LIGHT WITHIN REACH. PURWIC IN PLAE AND DRAINING CLR YELLOW. THIS MORNING PT WAS ASSISTED OUT OF BED TO CHAIR USING FWW TO BSC. PT STANDBY ASSIST.
[2025-01-09 15:33] VITALS: BP 124/89
[2025-01-09 16:43] LABS: Anion Gap 0.0 mmol/L (3-11); Blood Urea Nitrogen 36.0 mg/dL (8-24); CO2, Blood 37.0 mmol/L (21-32); Calcium, Blood 6.8 mg/dL (8.5-10.1); Chloride, Blood 107.0 mmol/L (98-108); Creatinine, Blood 1.57 mg/dL (0.60-1.20); Glucose, Blood 104.0 mg/dL (70-99); Potassium, Blood 4.2 mmol/L (3.5-5.5); Sodium, Blood 140.0 mmol/L (136-145)
--- NOTE | 2025-01-09 19:00 | NUR ---
NO CHANGE, UNEVENTFUL EVENING PT FED SELF HAS HAD NO C/O PAIN NO DISTRESS. PT HEARING AID BATTERY SO PT WAS GIVEN HEARING MICROPHONE FROM HOSPITAL
[2025-01-09 19:32] VITALS: BP 96/62
[2025-01-09 23:41] VITALS: BP 131/84
[2025-01-10 04:02] VITALS: BP 135/89
[2025-01-10 05:21] LABS: BASOPHILS ABSOLUTE AUTO 0.02 K/mm3 (0.00-0.23); BASOPHILS PERCENT AUTO 0 % (0-2); EOSINOPHILS ABSOLUTE AUTO 0.07 K/mm3 (0.00-0.68); EOSINOPHILS PERCENT AUTO 1 % (0-6); Hematocrit 26.4 % (37.0-53.0); Hemoglobin 8.3 g/dL (13.5-17.5); IMMATURE GRAN ABSOLUTE AUTO 0.10 K/mm3 (0.00-0.10); IMMATURE GRAN PERCENT AUTO 1 % (0-1); LYMPHOCYTES ABSOLUTE AUTO 0.92 K/mm3 (0.84-5.20); LYMPHOCYTES PERCENT AUTO 11 % (21-46); MONOCYTES ABSOLUTE AUTO 0.74 K/mm3 (0.16-1.47); MONOCYTES PERCENT AUTO 9 % (4-13); Mean Corpuscular HGB Conc 31.4 g/dL (31.5-36.5); Mean Corpuscular Volume 91 fL (80-100); NEUTROPHILS ABSOLUTE AUTO 6.44 K/mm3 (1.96-9.15); NEUTROPHILS PERCENT AUTO 78 % (41-73); NRBC ABSOLUTE 0.00 K/mm3 (0.00-0.02); NRBC Auto 0.0 /100 WBC (0.0-0.2); Platelet Count 179 K/mm3 (150-400); RDW Coefficient Variation 14.9 % (11.7-14.2); RDW Standard Deviation 49.5 fL (35.1-46.3)
[2025-01-10 05:43] LABS: Anion Gap 6.0 mmol/L (3-11); Blood Urea Nitrogen 36.0 mg/dL (8-24); CO2, Blood 32.0 mmol/L (21-32); Calcium, Blood 8.6 mg/dL (8.5-10.1); Chloride, Blood 105.0 mmol/L (98-108); Creatinine, Blood 1.43 mg/dL (0.60-1.20); Glucose, Blood 101.0 mg/dL (70-99); Potassium, Blood 4.0 mmol/L (3.5-5.5); Sodium, Blood 139.0 mmol/L (136-145)
--- NOTE | 2025-01-10 05:51 | NUR ---
NIGHT SUMMARY PT SLEEPING OFF/ON T/O THE NIGHT. HE REPORTS ITS DIFFICULT TO "GET COMFORTABLE"; INCREASED WORK OF BREATHING WHEN LYING FLAT VS SITTING UP AT BEDSIDE. PT BLE EDEMA IS 2 PLUS. ABD IS DISTENDED AND FIRM. PT WAS EATING A TURKEY SANDWICH AND SAID HE FELT IT WAS "CAUGHT IN HIS THORAT' PT WAS ABLE TO CLEAR WITH SOME WORK OF COUGHING. PILLS HAD TO BE TAKEN ONE AT A TIME. PT MAY BENEFIT FROM ST EVAL. PT AFIB ON TELE WITH NOT EVENTS. VITAL SIGNS REVIEWED AND STABLE. CALL LIGHT ACCESSIBLE. CARE ONGOING.
[2025-01-10 07:11] VITALS: BP 124/85
[2025-01-10 11:40] VITALS: BP 90/72
[2025-01-10 15:21] VITALS: BP 106/73
--- NOTE | 2025-01-10 17:05 | NUR ---
SHIFT SUMMARY PT AOX4, COOPERATIVE, ABLE TO MAKE NEEDS KOWN. PT IS 2 PERSON ASSIST TO COMMODE FOR VOIDING. WAS ON ROOM AIR BEGINNING OF SHIFT, DID HAVE SOB APPROX 1500, ADMINISTERED SUPPLEMENTAL O2 FOR COMFORT, 1L O2. TOLERATING MEDICATIONS. ON 2 L FLUID RESTRICTION. TOLERATING MEDICATIONS AND DIRUTICS. BED IN LOWEST POSITION, CALL LIGHT WITHIN REACH.
[2025-01-10 23:36] VITALS: BP 93/62
[2025-01-11 04:26] VITALS: BP 126/87
[2025-01-11 05:26] LABS: BASOPHILS ABSOLUTE AUTO 0.02 K/mm3 (0.00-0.23); BASOPHILS PERCENT AUTO 0 % (0-2); EOSINOPHILS ABSOLUTE AUTO 0.03 K/mm3 (0.00-0.68); EOSINOPHILS PERCENT AUTO 0 % (0-6); Hematocrit 26.5 % (37.0-53.0); Hemoglobin 8.1 g/dL (13.5-17.5); IMMATURE GRAN ABSOLUTE AUTO 0.07 K/mm3 (0.00-0.10); IMMATURE GRAN PERCENT AUTO 1 % (0-1); LYMPHOCYTES ABSOLUTE AUTO 0.97 K/mm3 (0.84-5.20); LYMPHOCYTES PERCENT AUTO 11 % (21-46); MONOCYTES ABSOLUTE AUTO 0.72 K/mm3 (0.16-1.47); MONOCYTES PERCENT AUTO 8 % (4-13); Mean Corpuscular HGB Conc 30.6 g/dL (31.5-36.5); Mean Corpuscular Volume 93 fL (80-100); NEUTROPHILS ABSOLUTE AUTO 7.19 K/mm3 (1.96-9.15); NEUTROPHILS PERCENT AUTO 80 % (41-73); NRBC ABSOLUTE 0.00 K/mm3 (0.00-0.02); NRBC Auto 0.0 /100 WBC (0.0-0.2); Platelet Count 180 K/mm3 (150-400); RDW Coefficient Variation 14.6 % (11.7-14.2); RDW Standard Deviation 49.2 fL (35.1-46.3)
[2025-01-11 05:48] LABS: Anion Gap 7.0 mmol/L (3-11); Blood Urea Nitrogen 41.0 mg/dL (8-24); CO2, Blood 30.0 mmol/L (21-32); Calcium, Blood 8.1 mg/dL (8.5-10.1); Chloride, Blood 104.0 mmol/L (98-108); Creatinine, Blood 1.56 mg/dL (0.60-1.20); Glucose, Blood 102.0 mg/dL (70-99); Potassium, Blood 4.0 mmol/L (3.5-5.5); Sodium, Blood 137.0 mmol/L (136-145)
--- NOTE | 2025-01-11 05:49 | NUR ---
GRIP WRAPPER SUMMARY NO ACUTE CHANGES. PT WAS PLACED ON 1LPM OXYGEN DURING DAY SHIFT. PT WAS MARKEDLY LESS RESTLESS T/O THE NIGHT. PT REMARKED SEVERAL TIMES OF THE INCREASED COMFORT IN BREATHING. PT FELT HE WAS ABLE TO SLEEP BETTER. PT ON TELE--AFIB. NO EVENTS. MALE PURWIC IN PLACE. CALL LIGHT ACCESSIBLE. PT ABLE TO MAKE NEEDS KNOWN. BED ALARM IN PLACE. CARE ONGOING.
[2025-01-11 07:42] VITALS: BP 138/95
[2025-01-11 09:13] LABS: Ferritin, Serum 133.0 ng/mL (26-388); Total Iron Binding Capacity 244.0 ug/dL (250-450)
[2025-01-11 11:39] VITALS: BP 105/69
[2025-01-11] MEDS ORDERED: Cyanocobalamin/Fa/Pyridoxine 1 Tablet PO SCH (13:00)
[2025-01-11 15:49] VITALS: BP 105/67
--- NOTE | 2025-01-11 18:08 | NUR ---
SHIFT SUMMARY PATIENT IN BED MOST OF THIS SHIFT. USING MALE PUREWICK. ENCOURAGED INCREASED MOBILITY. USING 1 LITER OXYGEN FOR INCREASED WOB, SATING MID TO HIGH 90'S ON ROOM AIR BUT REPORTS A FEELING OF NOT BEING ABLE TO BREATH AND ANXIETY WITHOUT THE OXYGEN SUPPORT. DIURESING WELL, BP MAINTAINING. A/O X4, ABLE TO MAKE NEEDS KNOWN. CALL LIGHT IN REACH.
[2025-01-11 19:59] VITALS: BP 88/65
[2025-01-12] VITALS (10 sets, daily range): BP systolic 88–131; BP diastolic 61–90
--- NOTE | 2025-01-12 03:42 | NUR ---
PATIENT ALERT AND ORIENTED, VERY [place], NEEDS TO BE ABLE TO SEE YOU TO HEAR YOU, STATES HE HAS BEEN FEELING LIKE HE CAN'T BREATH AT TIME, PULSE OX HAS REMAIN BETWEEN 95-97 ON 1L/NC, ABDOMIN SOFT AND NONTENDER, EDEMA TO LOWER EXTREMITIES 2+ BILATERALLY, PUREWICK IN PLACE, CALL LIGHTIN REACH, EDUCATED NOT TO GET UP WITHOUT CALLING FOR HELP, VERBALIZED UNDERSTANDING, BED IN LOW AND LOCKED POSITION. WILL CONTINUE TO MONITOR
[2025-01-12 04:55] LABS: BASOPHILS ABSOLUTE AUTO 0.03 K/mm3 (0.00-0.23); BASOPHILS PERCENT AUTO 0 % (0-2); EOSINOPHILS ABSOLUTE AUTO 0.08 K/mm3 (0.00-0.68); EOSINOPHILS PERCENT AUTO 1 % (0-6); Hematocrit 26.4 % (37.0-53.0); Hemoglobin 8.1 g/dL (13.5-17.5); IMMATURE GRAN ABSOLUTE AUTO 0.07 K/mm3 (0.00-0.10); IMMATURE GRAN PERCENT AUTO 1 % (0-1); LYMPHOCYTES ABSOLUTE AUTO 1.10 K/mm3 (0.84-5.20); LYMPHOCYTES PERCENT AUTO 12 % (21-46); MONOCYTES ABSOLUTE AUTO 0.78 K/mm3 (0.16-1.47); MONOCYTES PERCENT AUTO 8 % (4-13); Mean Corpuscular HGB Conc 30.7 g/dL (31.5-36.5); Mean Corpuscular Volume 93 fL (80-100); NEUTROPHILS ABSOLUTE AUTO 7.49 K/mm3 (1.96-9.15); NEUTROPHILS PERCENT AUTO 79 % (41-73); NRBC ABSOLUTE 0.00 K/mm3 (0.00-0.02); NRBC Auto 0.0 /100 WBC (0.0-0.2); Platelet Count 217 K/mm3 (150-400); RDW Coefficient Variation 14.9 % (11.7-14.2); RDW Standard Deviation 50.1 fL (35.1-46.3)
[2025-01-12 06:22] LABS: Anion Gap Unable to Calculate mmol/L (3-11); Blood Urea Nitrogen 63 mg/dL (8-24); CO2, Blood 37 mmol/L (21-32); Calcium, Blood 7.7 mg/dL (8.5-10.1); Chloride, Blood 104 mmol/L (98-108); Creatinine, Blood 1.77 mg/dL (0.60-1.20); Glucose, Blood 106 mg/dL (70-99); Potassium, Blood 3.9 mmol/L (3.5-5.5); Sodium, Blood 137 mmol/L (136-145)
[2025-01-12] MEDS ORDERED: Cyanocobalamin 1000 MCG/ML 1ML Vial IM SCH (09:00)
--- NOTE | 2025-01-12 10:29 | NUR ---
QUESTIONING DR GREENE REGARDING LOW BLOOD PRESSURES THROUGH THE NIGHT AND BP OF 100/73 THIS AM AND WHETHER OR NOT TO HOLD LASIX OR OTHER MEDS, RECEIVED INSTRUCTION TO GIVE ALL ORDERED MEDS AND NOTIFY HIM IF BP DROPS BELOW SYSTOLIC 90.
--- NOTE | 2025-01-12 10:33 | NUR ---
CALLED DR GREENE REGARDING LOW BP. INSTRUCTED TO CONTINUE TO RECHECK EVERY HOUR X3 SINCE PATIENT IS CURRENTLY ASYMPTOMATIC. AND THAT HE WILL HOLD EVENING DOSE OF LASIX.
--- NOTE | 2025-01-12 16:56 | NUR ---
SHIFT SUMMARY PATIENT ABLE TO AMBULATE SHORT DISTANCE IN ROOM. XLARGE BM THIS SHIFT. BLOOD PRESSURES BETTER SHIFT CONTINUED, REMAINED ASYMPTOMATIC THROUGHOUT. A/OX4, HARD OF HEARING. ROD HOSE PLACED. CALL LIGHT IN REACH, ABLE TO MAKE NEEDS KNOWN.
[2025-01-13] VITALS (7 sets, daily range): BP systolic 98–138; BP diastolic 61–79
--- NOTE | 2025-01-13 03:58 | NUR ---
SHIFT SUMMARY PATIENT IS ALERT AND ORIENTED X2. PATIENT HAS HAD NO ACUTE EVENTS THIS SHIFT. VITAL SIGNS REVIEWED. PATIENT HAS BEEN SLEEPING MOST OF SHIFT. PATIENT IND WITH URINAL. PATIENT HAS HAD NO COMPLAINTS OF SOB, NAUSEA, VOMITTING OR PAIN THIS SHIFT. PATIENT IS CHITIMACHA. ROD HOSE IN PLACE. CALL LIGHT IN PLACE. BED IN LOCKED AND LOWEST POSITION.
[2025-01-13 07:30] LABS: BASOPHILS ABSOLUTE AUTO 0.03 K/mm3 (0.00-0.23); BASOPHILS PERCENT AUTO 0 % (0-2); EOSINOPHILS ABSOLUTE AUTO 0.03 K/mm3 (0.00-0.68); EOSINOPHILS PERCENT AUTO 0 % (0-6); Hematocrit 25.9 % (37.0-53.0); Hemoglobin 8.0 g/dL (13.5-17.5); IMMATURE GRAN ABSOLUTE AUTO 0.11 K/mm3 (0.00-0.10); IMMATURE GRAN PERCENT AUTO 1 % (0-1); LYMPHOCYTES ABSOLUTE AUTO 0.97 K/mm3 (0.84-5.20); LYMPHOCYTES PERCENT AUTO 9 % (21-46); MONOCYTES ABSOLUTE AUTO 0.75 K/mm3 (0.16-1.47); MONOCYTES PERCENT AUTO 7 % (4-13); Mean Corpuscular HGB Conc 30.9 g/dL (31.5-36.5); Mean Corpuscular Volume 93 fL (80-100); NEUTROPHILS ABSOLUTE AUTO 9.30 K/mm3 (1.96-9.15); NEUTROPHILS PERCENT AUTO 83 % (41-73); NRBC ABSOLUTE 0.00 K/mm3 (0.00-0.02); NRBC Auto 0.0 /100 WBC (0.0-0.2); Platelet Count 237 K/mm3 (150-400); RDW Coefficient Variation 15.0 % (11.7-14.2); RDW Standard Deviation 50.1 fL (35.1-46.3)
[2025-01-13 08:02] LABS: Alanine Aminotransfer (ALT/SGP 26.0 U/L (12-78); Albumin, Blood 3.2 g/dL (3.4-5.0); Albumin/Globulin Ratio 0.8 (0.8-1.8); Anion Gap 1.0 mmol/L (3-11); Aspartate Aminotrans (AST/SGOT 19.0 U/L (12-37); Bilirubin, Total 0.4 mg/dL (0.1-1.0); Blood Urea Nitrogen 57.0 mg/dL (8-24); CO2, Blood 38.0 mmol/L (21-32); Calcium, Blood 8.7 mg/dL (8.5-10.1); Chloride, Blood 103.0 mmol/L (98-108); Creatinine, Blood 1.62 mg/dL (0.60-1.20); Globulin, Blood 4.2 g/dL (2.2-4.0); Glucose, Blood 115.0 mg/dL (70-99); Potassium, Blood 3.8 mmol/L (3.5-5.5); Sodium, Blood 138.0 mmol/L (136-145); Total Protein, Blood 7.4 g/dL (6.4-8.2)
--- NOTE | 2025-01-13 08:20 | NUR ---
pt sitting up on the side of the bed, a/ox3, pleasant and cooperative with care, follows commands well, denies pain at this time, stats he slept well last night, is sob, sats are 99% on r/a, no cough noted, hrirr, tele in place running afib per monitor, see strip, 2-3+ edema noted to b/l le, cap refill<3 sec, vs stabe, afebrile, piv to r and l ac, sites are clear and patent, btx4, abd flat soft nontender, is incont and uses urinal when can to void, reports reg bm's, skin c/d/i, masameera, beena, call light in reach.
--- NOTE | 2025-01-13 10:05 | NUR ---
pt insist he did not get breakfast, but his tray is outside room with 90% of it eated, brought some yogurt, and a few snacks, gave a new order of lasix this am, pt sitting up on side of the bed, call light in reach.
--- NOTE | 2025-01-13 13:01 | NUR ---
PATIENT HAD NEAR SYNCOPAL EPISODE. SITTING ON BEDSIDE COMMODE AND APPEARED TO HAVE VEGAL REACTION. PER NET MOBILE DEVELOPER HR WENT TO LOW 30'S AND RECOVERED QUICKLY. PATIENT WAS NOTED TO SLUMP TO RIGHT SIDE WHILE SITTING ON BEDSIDE COMMODE. HE WAS DIAPHORETIC. HE DENIED CHEST PAIN OR PRESSURE. HE WAS ASSISTED USING SIT TO STAND AND 2 STAFF TO RETURN TO BED. HOB AT 45 DEGREE. VITAL SIGNS STABLE. NADN. PATIENT AO X 3.
--- NOTE | 2025-01-13 17:49 | NUR ---
pt had an brief episode of low heart rate, took three people to get him back to bed, never lost consiousness but became quite lethargic, perked up once in bed, resp are a bit labored, sats 99%, v.s. stable, no further changes this shift, call light in reach.
[2025-01-14] VITALS (11 sets, daily range): BP systolic 95–132; BP diastolic 57–96
--- NOTE | 2025-01-14 04:05 | NUR ---
SHIFT SUMMARY PATIENT IS ALERT AND ORIENTED. PATIENT HAS HAD NO ACUTE EVENTS THIS SHIFT. PATIENT HAS HAD NO COMPLAINTS OF SOB, NAUSEA, PAIN OR VOMITTING. PATIENT HAS BEEN SLEEPING MOST OF SHIFT WITH NO EVENTS. PATIENT REMAINS FORGETFUL. NO EVENTS ON TELE THIS SHIFT. BED IN LOCKED AND LOWEST POSITION. CALL LIGHT IN PLACE.
[2025-01-14 05:29] LABS: BASOPHILS ABSOLUTE AUTO 0.04 K/mm3 (0.00-0.23); BASOPHILS PERCENT AUTO 0 % (0-2); EOSINOPHILS ABSOLUTE AUTO 0.03 K/mm3 (0.00-0.68); EOSINOPHILS PERCENT AUTO 0 % (0-6); Hematocrit 24.8 % (37.0-53.0); Hemoglobin 7.3 g/dL (13.5-17.5); IMMATURE GRAN ABSOLUTE AUTO 0.20 K/mm3 (0.00-0.10); IMMATURE GRAN PERCENT AUTO 2 % (0-1); LYMPHOCYTES ABSOLUTE AUTO 1.08 K/mm3 (0.84-5.20); LYMPHOCYTES PERCENT AUTO 9 % (21-46); MONOCYTES ABSOLUTE AUTO 0.77 K/mm3 (0.16-1.47); MONOCYTES PERCENT AUTO 6 % (4-13); Mean Corpuscular HGB Conc 29.4 g/dL (31.5-36.5); NEUTROPHILS ABSOLUTE AUTO 10.38 K/mm3 (1.96-9.15); NEUTROPHILS PERCENT AUTO 83 % (41-73); NRBC ABSOLUTE 0.02 K/mm3 (0.00-0.02); NRBC Auto 0.2 /100 WBC (0.0-0.2); Platelet Count 217 K/mm3 (150-400); RDW Coefficient Variation 15.5 % (11.7-14.2); RDW Standard Deviation 54.2 fL (35.1-46.3)
[2025-01-14 05:31] LABS: Mean Corpuscular Volume 98 fL (80-100)
[2025-01-14 06:06] LABS: Alanine Aminotransfer (ALT/SGP 28.0 U/L (12-78); Albumin, Blood 2.7 g/dL (3.4-5.0); Albumin/Globulin Ratio 0.6 (0.8-1.8); Anion Gap 9.0 mmol/L (3-11); Aspartate Aminotrans (AST/SGOT 25.0 U/L (12-37); Bilirubin, Total 0.5 mg/dL (0.1-1.0); Blood Urea Nitrogen 60.0 mg/dL (8-24); CO2, Blood 24.0 mmol/L (21-32); Calcium, Blood 8.7 mg/dL (8.5-10.1); Chloride, Blood 107.0 mmol/L (98-108); Creatinine, Blood 1.57 mg/dL (0.60-1.20); Globulin, Blood 4.5 g/dL (2.2-4.0); Glucose, Blood 127.0 mg/dL (70-99); Potassium, Blood 3.9 mmol/L (3.5-5.5); Sodium, Blood 136.0 mmol/L (136-145); Total Protein, Blood 7.2 g/dL (6.4-8.2)
[2025-01-14 12:22] LABS: Hematocrit 22.1 % (37.0-53.0); Hemoglobin 6.8 g/dL (13.5-17.5)
[2025-01-14] MEDS ORDERED: ATOR40TA PO (13:46)
[2025-01-14] MEDS ORDERED: LOSARTAN POTASS25 M2 PO (13:46)
[2025-01-14] MEDS ORDERED: NS 500 ML IV SCH (16:10)
--- NOTE | 2025-01-14 19:19 | NUR ---
SHIFT SUMMARY PT A&OX3, VSS, RA, AFIB 80-90 ON TELE. ORAL LASIX GIVEN, PT COMPLIANT WITH F/R. CONT/INCONT. OF URINE. NO BM THIS SHIFT. HGB THIS AM 7.3, FURTHER DECREASED TO 6.[address] ABD NEGATIVE FOR ACUTE BLEED, STILL NEED STOOL SAMPLE. 1 UNIT OF PRBC INFUSING, PT TOLERATING WELL. PT COOPERATIVE WITH CARE, CALL LIGHT IN REACH.
[2025-01-14] MEDS ORDERED: Pantoprazole Sodium 40 MG Injection IV SCH (21:00)
[2025-01-14 21:19] LABS: Hematocrit 22.4 % (37.0-53.0); Hemoglobin 7.0 g/dL (13.5-17.5)
--- NOTE | 2025-01-14 22:31 | NUR ---
PT FINISHED ONE UNIT OF BLOOD AT 1999. HH WAS RECHECKED AT 2099. HGB WENT FROM 6.8 TO 7.0. PLACED CALL TO HOSPITALIST. SPOKE TO FERNY. ADVISED OF IMPROVED BLOOD PRESSURE AND NEW HGB LAB. FERNY ADVISED DUE TO PT FLUID OVERLOAD TO WAIT FOR LABS IN MORNING AND REEVALUATE. NO ADDITIONAL BLOOD TRANSFUSION ORDERED AT THIS TIME.
[2025-01-15] VITALS: BP 130/89
[2025-01-15 03:37] VITALS: BP 123/80
[2025-01-15 05:10] LABS: BASOPHILS ABSOLUTE AUTO 0.04 K/mm3 (0.00-0.23); BASOPHILS PERCENT AUTO 0 % (0-2); EOSINOPHILS ABSOLUTE AUTO 0.04 K/mm3 (0.00-0.68); EOSINOPHILS PERCENT AUTO 0 % (0-6); Hematocrit 23.1 % (37.0-53.0); Hemoglobin 7.1 g/dL (13.5-17.5); IMMATURE GRAN ABSOLUTE AUTO 0.29 K/mm3 (0.00-0.10); IMMATURE GRAN PERCENT AUTO 2 % (0-1); LYMPHOCYTES ABSOLUTE AUTO 1.21 K/mm3 (0.84-5.20); LYMPHOCYTES PERCENT AUTO 10 % (21-46); MONOCYTES ABSOLUTE AUTO 0.87 K/mm3 (0.16-1.47); MONOCYTES PERCENT AUTO 7 % (4-13); Mean Corpuscular HGB Conc 30.7 g/dL (31.5-36.5); NEUTROPHILS ABSOLUTE AUTO 9.62 K/mm3 (1.96-9.15); NEUTROPHILS PERCENT AUTO 80 % (41-73); NRBC ABSOLUTE 0.02 K/mm3 (0.00-0.02); NRBC Auto 0.2 /100 WBC (0.0-0.2); Platelet Count 225 K/mm3 (150-400); RDW Coefficient Variation 15.9 % (11.7-14.2); RDW Standard Deviation 51.5 fL (35.1-46.3)
[2025-01-15 05:26] LABS: Mean Corpuscular Volume 92 fL (80-100)
[2025-01-15 05:27] LABS: Alanine Aminotransfer (ALT/SGP 26.0 U/L (12-78); Albumin, Blood 2.9 g/dL (3.4-5.0); Albumin/Globulin Ratio 0.8 (0.8-1.8); Anion Gap 7.0 mmol/L (3-11); Aspartate Aminotrans (AST/SGOT 19.0 U/L (12-37); Bilirubin, Total 0.5 mg/dL (0.1-1.0); Blood Urea Nitrogen 60.0 mg/dL (8-24); CO2, Blood 31.0 mmol/L (21-32); Calcium, Blood 8.5 mg/dL (8.5-10.1); Chloride, Blood 105.0 mmol/L (98-108); Creatinine, Blood 1.65 mg/dL (0.60-1.20); Globulin, Blood 3.8 g/dL (2.2-4.0); Glucose, Blood 106.0 mg/dL (70-99); Potassium, Blood 3.5 mmol/L (3.5-5.5); Sodium, Blood 139.0 mmol/L (136-145); Total Protein, Blood 6.7 g/dL (6.4-8.2)
--- NOTE | 2025-01-15 05:58 | NUR ---
COPY OPERATOR SUMMARY UNIT OF BLOOD WAS IN MID TRANSFUSION AT THE START OF THE SHIFT. SEE PREVIOUS NURSE NOTE. HOSPITALIST CONTACTED ABOUT HGB LEVELS AND SOFTER BLOOD PRESSURES. INTERVENTIONS PER HOSPITALIST. MONITORED BLOOD PRESSURE T/O THE NIGHT--IMPROVED. PT HGB THIS AM WAS 7.1. PT A/OX4, FORGETFUL. ABLE TO MAKE NEEDS KNOWN. CECIL IV WITH LARGE BRUISING AND TENDERNESS. IV REMOVED. NEW IV PLACED TO RIGHT AC. PT CONTINUES TO HAVE 2-3 PLUS PITTING EDEMA. PLACED PURWIC ON FOR PT COMFORT AND ACCURATE I&O'S. PT INCONT OF URINE. PT SITTING UP AT BEDSIDE OFF AND ON FOR MORE COMFORTABLE BREATHING. CALL LIGHT ACCESSIBLE. CARE ONGOING.
[2025-01-15] MEDS ORDERED: Magnesium Hydroxide Conc 10 ML UDC PO PRN (10:05)
[2025-01-15] MEDS ORDERED: Polyethylene Glycol 3350 17 gm PO ONE (11:00)
[2025-01-15] MEDS ORDERED: Polyethylene Glycol 3350 17 gm PO PRN (11:00)
[2025-01-15 13:16] LABS: Hematocrit 25.5 % (37.0-53.0); Hemoglobin 7.9 g/dL (13.5-17.5)
[2025-01-15 14:28] LABS: Stool Occult Bld Immuno 1 Negative (NEGATIVE)
[2025-01-15 17:16] VITALS: BP 118/82
--- NOTE | 2025-01-15 17:50 | NUR ---
SHIFT SUMMARY PT A&OX4 WITH PERIODS OF CONFUSION. VSS, RA, AFIB IN 80S ON TELE. HGB THIS AM WAS 7.1, AT 1300 IT INCREASED TO 7.9. BOWEL REGIMEN STARTED WITH LG BLACK BM IN BSC, SAMPLE SENT FOR OCCULT BLOOD, RESULTED NEGATIVE. ORAL LASIX CHANGED TO IV LASIX, 800 MEASURED OUT, 1 INCONTINENT VOID. CONDOM CATH PLACED FOR ACURATE I&OS, PT TOLERATING WELL. PT PLEASANT AND COOPERATIVE WITH CARE, CALL LIGHT IN REACH.
[2025-01-15 19:01] LABS: Hematocrit 24.1 % (37.0-53.0); Hemoglobin 7.5 g/dL (13.5-17.5)
[2025-01-15 21:34] VITALS: BP 124/88
[2025-01-16 00:12] VITALS: BP 119/77
[2025-01-16 01:02] LABS: Hematocrit 24.6 % (37.0-53.0); Hemoglobin 7.8 g/dL (13.5-17.5)
--- NOTE | 2025-01-16 04:34 | NUR ---
SHIFT SUMMARY ADMITTED NEW ONSET CHF. FULL CODE. 2L FLUID RESTRICTION. PLAN IS TO DC TO [facility]. WE ARE DIURESING. WE FOUND A PUREWICK WORKED BETTER THIS SHIFT, THE CONDOM CATH FAILED. TELEMETRY: AFIB @ 82 BPM, WITH AYDEE TO THE 40'S THIS SHIFT. ON RA. A&O X3, FORGETFUL. 2 ASSIST TO BSC. MONITORING HGB LABS, THEY HAVE BEEN LOW. HX OF IRON DEF ANEMIA.
[2025-01-16 06:05] VITALS: BP 97/68
[2025-01-16 07:25] VITALS: BP 135/76
[2025-01-16] MEDS ORDERED: CARV6.25 PO (11:46)
[2025-01-16] MEDS ORDERED: JARDIANCE10 MG PO (11:47)
[2025-01-16] MEDS ORDERED: XARELTO10 M4 PO (11:59)
[2025-01-16] MEDS ORDERED: PANT40 PO (12:00)
[2025-01-16] MEDS ORDERED: DOCU100 PO (12:01)
[2025-01-16] MEDS ORDERED: MIRALAX17 GM PO (12:01)
[2025-01-16] MEDS ORDERED: SENN187 PO (12:01)
[2025-01-16] MEDS ORDERED: FURO40 PO (12:02)
[2025-01-16] MEDS ORDERED: DULCOLAX400 MG/5 M PO (12:02)
== END 2025-01-16 12:00 | DRG 292 ==
LOC: ER 14:21 → MEDS 14:22
PROVIDERS: Emergency Medicine; Internal Medicine; Nurse Practitioner Acute Care; Student in an Organized Health Care Education/Training Program; ADMIT Student in an Organized Health Care Education/Training Program
PROC: 30233N1 Transfusion of Nonautologous Red Blood Cells into Peripheral Vein, Percutaneous Approach (ICD-10-PCS; principal; 2025-01-14)
DX: I50.31 Acute diastolic (congestive) heart failure (principal); D62 Acute posthemorrhagic anemia; E87.3 Alkalosis; I48.20 Chronic atrial fibrillation, unspecified; E53.8 Deficiency of other specified B group vitamins; E03.8 Other specified hypothyroidism; I12.9 Hypertensive chronic kidney disease with stage 1 through stage 4 chronic kidney disease, or unspecified chronic kidney disease; N18.32 Chronic kidney disease, stage 3b; N40.0 Benign prostatic hyperplasia without lower urinary tract symptoms; Z60.2 Problems related to living alone; Z79.890 Hormone replacement therapy; Z79.01 Long term (current) use of anticoagulants
CPT/HCPCS: 36415; 36430; 71045; 74177; 80048; 80053; 82274; 82607; 82728; 82746; 83540; 83550; 83735; 83880; 84145; 84439; 84443; 84481; 84484; 85014; 85018; 85025; 86850; 86900; 86901; 86923; 92526; 92610; 93005; 93010; 93306; 94760; 96365; 96368; 96375; 96376; 97110; 97161; 97530; 99285-25; A9270; G0378; J0456; J0696; J1938; J2470; J3420; J7050; P9016; Q9967